=== PATIENT | female | born 1990 | race Two or more races ===

== ENCOUNTER 2024-01-13 02:22 | Emergency (ER) | payer MEDICAID, OTHER ==
[~2024-01-13] VITALS: Ht 152.4 cm; Wt 90.7 kg
[2024-01-13] MEDS: KETOROLAC TROMETH 30 MG/ML 1ML VIAL IM ONE (04:32)
[2024-01-13 04:52] VITALS: BP 128/78; PULSE 71; RESP 20; TEMP 98; O2SAT 98
== END 2024-01-13 04:58 | disposition home or self-care (01) ==
LOC: ER 02:22 → EDBD 02:22 → ER 04:58
DX: R07.89 Other chest pain (principal); M54.2 Cervicalgia; V49.9XXA Car occupant (driver) (passenger) injured in unspecified traffic accident, initial encounter; Y93.89 Activity, other specified; Y92.410 Unspecified street and highway as the place of occurrence of the external cause; Y99.8 Other external cause status
CPT/HCPCS: 71045; 93005; 96372; 99283; J1885